=== PATIENT | female | born 1965 | race Caucasian/White ===

== ENCOUNTER → 2019-12-04 12:28 | Outpatient (BNVA) | payer BC, SELFPAY | PROVIDERS: Family Provider Internal Medicine; Visit Provider Family Medicine | DX: R68.89 Other general symptoms and signs (principal); E13.9 Other specified diabetes mellitus without complications; F41.9 Anxiety disorder, unspecified | CPT/HCPCS: 87635 ==

== ENCOUNTER → 2020-02-07 11:32 | Outpatient (BNVA) | payer BC, SELFPAY | PROVIDERS: Family Provider Internal Medicine; Visit Provider Family Medicine | DX: E11.9 Type 2 diabetes mellitus without complications (principal); J44.9 Chronic obstructive pulmonary disease, unspecified; R56.9 Unspecified convulsions; F41.9 Anxiety disorder, unspecified; G43.909 Migraine, unspecified, not intractable, without status migrainosus; E78.2 Mixed hyperlipidemia; G43.009 Migraine without aura, not intractable, without status migrainosus | CPT/HCPCS: 80053; 80061; 83036; 85025 ==

== ENCOUNTER → 2020-08-07 09:34 | Outpatient (BNVA) | payer BC, SELFPAY | PROVIDERS: Family Provider Internal Medicine; Visit Provider Family Medicine | DX: R39.9 Unspecified symptoms and signs involving the genitourinary system (principal); E13.9 Other specified diabetes mellitus without complications | CPT/HCPCS: 80048; 81000; 83036; 87086 ==

== ENCOUNTER → 2021-02-13 10:50 | Outpatient (BNVA) | payer BC, SELFPAY | PROVIDERS: Family Provider Internal Medicine; Visit Provider Family Medicine | DX: E78.2 Mixed hyperlipidemia (principal); E11.9 Type 2 diabetes mellitus without complications | CPT/HCPCS: 80053; 80061; 83036 ==

== ENCOUNTER → 2021-04-10 09:33 | Outpatient (BNVA) | payer BC, SELFPAY | PROVIDERS: Family Provider Internal Medicine; Referring Provider Family Medicine; Visit Provider Specialist | DX: G40.909 Epilepsy, unspecified, not intractable, without status epilepticus (principal); G44.309 Post-traumatic headache, unspecified, not intractable; F07.81 Postconcussional syndrome | CPT/HCPCS: 99215 ==

== ENCOUNTER 2021-05-22 08:50 | Outpatient (CLI) | payer BC, SELFPAY ==
--- NOTE | 2021-05-22 09:30 | MR_ITS ---
WS: [id number] MRI BRAIN WITHOUT CONTRAST HISTORY: G43.709 - Chronic migraine without aura, LEFT occipital headache. COMPARISON: 05/30/2018 TECHNIQUE: Diffusion imaging, multiplanar T1, T2 and FLAIR imaging obtained. No evidence for acute infarct or hemorrhage. [place]-white matter differentiation is normal. No change i n the focal gliosis centered in the LEFT occipital lobe. No new areas of abnormal signal. No remote or acute infarcts are volume loss. Ventricles and extra-axial spaces are normal. No inferior displacement of cerebellar tonsils. The sella turcica and pituitary gland are unremarkabl e. Dural venous sinuses and [place]agan [place] of [place] demonstrate no abnormality on this unenhanced studies. Paranasal sinuses: Clear. Mastoid air cells: Normal. Calvarium and scalp: Intact. MR/MR head wo con* [id number] IMPRESSION: 1. Unremarkable noncontrast MRI brain. 2. Stable MRI brain since 05/30/2018.
== END 2021-05-22 08:51 | disposition home or self-care (01) ==
LOC: RADSHAW 08:54
PROVIDERS: PCP Family Medicine; Visit Provider Specialist
DX: G43.709 Chronic migraine without aura, not intractable, without status migrainosus (principal)
CPT/HCPCS: 70551

== ENCOUNTER → 2021-09-29 13:57 | Outpatient (BNVA) | payer OTHER, SELFPAY | PROVIDERS: PCP Family Medicine; Visit Provider Family Medicine | DX: M54.2 Cervicalgia (principal); E11.9 Type 2 diabetes mellitus without complications; G40.109 Localization-related (focal) (partial) symptomatic epilepsy and epileptic syndromes with simple partial seizures, not intractable, without status epilepticus | CPT/HCPCS: 72040; 80053; 80061; 83036; 85025 ==

== ENCOUNTER 2021-10-23 06:00 | Outpatient (RCR) | payer OTHER, SELFPAY | END 2021-11-20 23:59 | disposition home or self-care (01) | LOC: MPT 06:00 | PROVIDERS: PCP Family Medicine; Referring Provider Family Medicine; Visit Provider Family Medicine | DX: M54.2 Cervicalgia (principal); G89.29 Other chronic pain | CPT/HCPCS: 97110; 97140; 97161; G0283 ==

== ENCOUNTER 2021-11-28 06:33 | Day surgery (SDC) | payer OTHER, SELFPAY ==
[2021-11-27 08:32] VITALS: BMI 19.3
--- NOTE | 2021-11-28 06:53 | ANES.PREANE2 ---
Pre-Anesthetic Assessment Height/Weight: Height 1.63 m Weight 51.256 kg Operation Date: 11/28/21 08:00 Proposed Procedures p Colonoscopy 26566/r19.5(Not Applicable) - Otf Boo MD Familial anesthetic complications: Fentanyl during colonoscopy caused apnea and code w/ chest compression and need for narcan - happened in [facility]. SHe also received versed at the time. Also had a reaction to demerol - breathing issues Was Beta Emily taken within 24 hours: N/A Was Clonidine taken within 24 hours: N/A Last intake: > 8 hrs Social No alcohol and No tobacco Exam alert, oriented x 3, clear to auscultation bilaterally and regular rate & rhythm Airway Mallampati: Class I Dentition: other (1 crown) Pulmonary None reported CV/HEM None reported None reported Hepatic None reported GI None reported Metabolic Diabetes Mellitus and Hyperlipidemia [facility] [place] Fibromyalgia Neuropsych Seizure (on zonegran) Anesthetic Plan ASA status: 3 Anesthesia: MAC Risk of > 500 ml blood loss (7ml/kg in children): No Medications/Allergies Home Medications Medication Instructions Recorded Confirmed Last Taken Type ibuprofen 200 mg tablet 200 mg PO Q6H PRN 12/04/19 11/27/21 Unknown History cyclobenzaprine 10 mg tablet 10 mg PO TID PRN #30 tab MDD 30 mg 09/29/21 11/27/21 Unknown Rx dapagliflozin 5 mg tablet (Farxiga) 5 mg PO DAILY 90 Days #90 tab 09/29/21 11/27/21 Unknown Rx rosuvastatin 40 mg tablet 40 mg PO DAILY 90 Days #90 tab 09/29/21 11/27/21 Unknown Rx sumatriptan succinate 100 mg tablet 100 mg PO Q2H PRN #9 tab 09/29/21 11/27/21 Unknown Rx escitalopram oxalate 20 mg tablet 20 mg PO DAILY 11/27/21 11/27/21 Unknown History (Lexapro) metformin 500 mg tablet,extended 500 mg PO BID 11/27/21 11/27/21 Unknown History release 24 hr zonisamide 100 mg capsule 300 mg PO DAILY 11/27/21 11/27/21 Unknown History (Zonegran) Allergies Allergy/AdvReac Type Severity Reaction Status Date / Time fentanyl Allergy almost Verified 11/27/21 08:29 meperidine [From Demerol] Allergy anxiety Verified 11/27/21 08:29 [facility] Anesthesia Medical History Anxiety Diabetes 1.5, managed as type 2 Fibromyalgia Hyperlipidemia Migraines Seizure Surgical History H/O: hysterectomy Social History Smoking and tobacco status: never smoked Alcohol intake: current Alcohol intake frequency: holidays/special occasions only Alcohol type: wine History of recent travel: No Current gender identity: Female Special edmundo needs: No Female Reproductive History Spontaneous abortions: No Data Anesthesia Cardiac Studies: No Data to Display
[2021-11-28 07:21] VITALS: BP 135/80; PULSE 71; RESP 18; TEMP 36.3; O2SAT 98
[2021-11-28] MEDS: sodium chloride 0.9% 1,000 ML 30 ML IV (07:21)
[2021-11-28 08:54] VITALS: BP 102/65; PULSE 62; RESP 18; TEMP 36.5; O2SAT 97
[2021-11-28 09:04] VITALS: BP 109/75; PULSE 67; RESP 18; TEMP 36.6; O2SAT 95
--- NOTE | 2021-11-28 11:53 | W.PM.OPSUD ---
Surgery/Procedure H&P Update DATE OF PROCEDURE: November 28, 2021 DATE H&P PERFORMED: 11/26/21 H&P UPDATE INFORMATION: I have reviewed H&P completed within last 30 days, I have examined patient prior to procedure and No changes to prior documentation CHANGES TO PREVIOUS DOCUMENTATION: none PREOP DIAGNOSIS: Change in bowel habits PRIMARY INDICATION FOR PROCEDURE: The same PLANNED PROCEDURE: Operation Date: 11/28/21 08:00 Proposed Procedures p Colonoscopy 31150/r19.5(Not Applicable) - Otf Boo MD
== END 2021-11-28 09:22 | disposition home or self-care (01) ==
PROVIDERS: PCP Family Medicine; Visit Provider Surgery
PROC: 0DJD8ZZ Inspection of Lower Intestinal Tract, Via Natural or Artificial Opening Endoscopic (ICD-10-PCS; CPT 45378; principal; 2021-11-28 08:00)
DX: R19.5 Other fecal abnormalities (principal); D12.2 Benign neoplasm of ascending colon; E11.9 Type 2 diabetes mellitus without complications; E78.5 Hyperlipidemia, unspecified; M79.7 Fibromyalgia
CPT/HCPCS: 45380; 82274; 83630; 87493; 87506; 88305; J2704; J7030

== ENCOUNTER 2022-02-16 15:56 | Outpatient (CLI) | payer OTHER, SELFPAY ==
--- NOTE | 2022-02-16 16:00 | MR_ITS ---
WS: [id number] MRI CERVICAL SPINE NONCONTRAST TECHNIQUE: Sagittal T1, T2 and STIR imaging. Axial T2, gradient, and fiesta imaging. CLINICAL INFORMATION: R29.898 - Other symptoms and signs involving the musculos... COMPARISON: MRI 2017 FINDINGS: Straightening of the normal cervical lordosis. Cord signal is normal. No high-grade central canal [place] nosis. C2-C3: No significant disc bulging. Mild facet arthropathy. Foramen are patent. C3-C4: Mild/moderate facet arthropathy worse in the LEFT. Spinal canal and foramen are patent. C4-C5: No significant disc bulging. Moderate LEFT facet arthropathy. Mild LEFT and no significant RIG HT foraminal narrowing. Spinal canal is patent. Diffuse edema about the LEFT C4-C5 articulating facet . C5-C6: Moderate RIGHT facet arthropathy. Tiny LEFT pericentral protrusion. No significant central can al stenosis. Spinal canal and foramen are patent. C6-C7: Tiny shallow central protrusion. Mild LEFT and no significant RIGHT foraminal narrowing. Spina l canal is patent. C7-T1: Normal Slightly heterogeneous thyroid with improved nodularity compared to previous. Visualized brain stem structures: Normal. Prevertebral soft tissues: Normal. MR/MR cervical spin wo con* [id number] IMPRESSION: 1. Straightening of the normal cervical lordosis. Cord signal is normal. 2. Shallow central protrusion C6-C7 with a tiny annular fissure. Spinal canal is patent. No significant central canal stenosis. 3. Mild bony foraminal narrowing more prominent at LEFT C4-C5, and LEFT C6-C7. 4. Moderate facet arthropathy LEFT C3-C4, LEFT C4-C5, and RIGHT C5-C6. 5. Edema about the LEFT C4-C5 articulating facets consistent with synovitis. R ecommend correlation with LEFT neck pain. This is likely inflammatory or degene rative and is new from previous.
== END 2022-02-16 15:57 | disposition home or self-care (01) ==
PROVIDERS: PCP Family Medicine; Visit Provider Specialist
DX: R29.898 Other symptoms and signs involving the musculoskeletal system (principal); M50.223 Other cervical disc displacement at C6-C7 level
CPT/HCPCS: 72141

== ENCOUNTER → 2022-04-21 09:46 | Outpatient (BNVA) | payer OTHER, SELFPAY | PROVIDERS: PCP Family Medicine; Visit Provider Family Medicine | DX: M62.838 Other muscle spasm (principal); E13.9 Other specified diabetes mellitus without complications; F41.9 Anxiety disorder, unspecified; G43.909 Migraine, unspecified, not intractable, without status migrainosus; E11.9 Type 2 diabetes mellitus without complications; G43.009 Migraine without aura, not intractable, without status migrainosus; R19.4 Change in bowel habit; M54.2 Cervicalgia | CPT/HCPCS: 80053; 83036 ==

== ENCOUNTER 2022-04-23 06:06 | Outpatient (CLI) | payer OTHER, SELFPAY ==
--- NOTE | 2022-04-23 06:15 | US_ITS ---
WS: [id number] RIGHT UPPER QUADRANT ULTRASOUND HISTORY: Abd pain COMPARISON: None available. Liver: 12.7 cm in length. Normal size liver. No bile duct dilatation or mass. Portal Vein: Normal hepatopetal flow with monophasic waveform. Gallbladder: Normally distended gallbladder with no stones or wall thickening. CBD: 0.4 cm Pancreas: Normal size and echogenicity. Right kidney: 10.2 cm in length. Normal size and echogenicity. No hydronephrosis or mass. Aorta and IVC: Unremarkable abdominal aorta and IVC. No ascites. Ultrasound directed to the area of pain in the LEFT upper outer quadrant with no abnormality identifi ed by ultrasound. US/US gall bladder [id number] IMPRESSION: Normal RIGHT upper quadrant ultrasound.
== END 2022-04-23 06:07 | disposition home or self-care (01) ==
LOC: RAD 06:06
PROVIDERS: PCP Family Medicine; Visit Provider Surgery
DX: R10.9 Unspecified abdominal pain (principal); R19.4 Change in bowel habit
CPT/HCPCS: 76705

== ENCOUNTER 2022-05-07 10:02 | Outpatient (CLI) | payer OTHER, SELFPAY ==
--- NOTE | 2022-05-07 10:11 | MM_ITS ---
WS: [id number] Bilateral screening 3D tomosynthesis digital mammogram, 05/07/2022 Clinical Data: Z12.39 - Encounter for other screening for malignant neop... Comparison: 07/12/2019, 07/02/2018, 04/05/2017, 03/11/2017, 04/07/2016, 03/09/2016. Findings: The breast parenchymal pattern shows heterogeneous density No spiculated masses or clustered calcific ations are seen. There are no secondary signs of carcinoma. There are mole markers on both breasts. T here is a biopsy clip in the 7:00 position in the left breast. MM/[place] [id number] Impression: 1. Negative bilateral mammogram unchanged. 2. Recommend annual screening mammograms. BIRADS: 1-Negative FOLLOW UP: 1 Year Follow-up The [employer] store clerk checker was used.
== END 2022-05-07 10:03 | disposition home or self-care (01) ==
LOC: RAD 10:03
PROVIDERS: PCP Family Medicine; Visit Provider Surgery
DX: Z12.31 Encounter for screening mammogram for malignant neoplasm of breast (principal)
CPT/HCPCS: 77063; 77067

== ENCOUNTER 2022-06-02 07:31 | Outpatient (CLI) | payer OTHER, SELFPAY ==
--- NOTE | 2022-06-02 08:00 | NM_ITS ---
WS: [id number] NUCLEAR MEDICINE HIDA SCAN WITH GALLBLADDER EJECTION FRACTION HISTORY: R14.0 - Abdominal distension (gaseous) COMPARISON: Gallbladder ultrasound 04/23/2022 TECHNIQUE: The patient was intravenously injected with 8.3 mCi of TC99m Mebrofenin. Immediate imaging over the right upper quadrant was followed by 5 minute image and additional images for a total of 60 minutes. Normal uptake of radiotracer throughout the liver. Activity identified in the gallbladder at 10 minutes and well distended by 60 minutes. Activity in the proximal small bowel was seen by 30 minutes. Good washout of the radiotracer from the liver by 60 minutes. The patient then drank 8 ounces of Ensure Plus. Ejection fraction at 60 minutes was 91%. Normal GB ej ection fraction is 35-75%. Post fatty meal symptoms: None. NM/NM hepatobiliary w phar* [id number] IMPRESSION: 1. Normal HIDA scan. 2. Normal gallbladder ejection fraction.
== END 2022-06-02 07:32 | disposition home or self-care (01) ==
PROVIDERS: PCP Family Medicine; Visit Provider Surgery
DX: R14.0 Abdominal distension (gaseous) (principal)
CPT/HCPCS: 78227; A9537

== ENCOUNTER 2022-09-04 08:56 | Outpatient (CLI) | payer OTHER, SELFPAY ==
--- NOTE | 2022-09-04 09:04 | FL_ITS ---
WS: [id number] UPPER GI, SMALL BOWEL FOLLOW THROUGH 09/04/2022. HISTORY: Abdominal pain TECHNIQUE: Oral barium administered with the patient in the the upright and prone AMARAL positions. The upper GI tr act was studied from the cervical esophagus through the duodenal sweep. Cervical esophagus was normal. In the thoracic esophagus there were intermittent low level tertiary contractions with retention of c ontrast which cleared with additional swallowing. Small hiatal hernia without stricture or reflux. The stomach, pylorus, duodenal bulb, and duodenal sweep were unremarkable. Additional oral barium was administered and the small bowel evaluated with multiple overhead radiogra phs and spot films. The small bowel demonstrated a normal caliber throughout. Mucosal pattern of the jejunum and ileum were normal. The terminal ileum was well demonstrated with no abnormality identified. FL/FL upper GI smallbowel series IMPRESSION: Normal upper GI series and small bowel follow-through.
== END 2022-09-04 08:57 | disposition home or self-care (01) ==
LOC: RAD 08:58
PROVIDERS: PCP Family Medicine; Visit Provider Surgery
DX: R14.0 Abdominal distension (gaseous) (principal); R19.4 Change in bowel habit; R10.9 Unspecified abdominal pain
CPT/HCPCS: 74240; 74248

== ENCOUNTER → 2022-10-20 10:35 | Outpatient (BNVA) | payer OTHER, SELFPAY | PROVIDERS: PCP Family Medicine; Visit Provider Family Medicine | DX: E13.9 Other specified diabetes mellitus without complications (principal); F41.9 Anxiety disorder, unspecified; G62.9 Polyneuropathy, unspecified; M62.838 Other muscle spasm; G43.909 Migraine, unspecified, not intractable, without status migrainosus; E11.9 Type 2 diabetes mellitus without complications; H65.192 Other acute nonsuppurative otitis media, left ear; E78.2 Mixed hyperlipidemia; G43.009 Migraine without aura, not intractable, without status migrainosus | CPT/HCPCS: 80053; 80061; 83036 ==

== ENCOUNTER → 2023-01-12 10:39 | Outpatient (BNVA) | payer OTHER, SELFPAY | PROVIDERS: PCP Family Medicine; Visit Provider Family Medicine | DX: R39.9 Unspecified symptoms and signs involving the genitourinary system (principal); Z12.4 Encounter for screening for malignant neoplasm of cervix | CPT/HCPCS: 81000; 87086 ==

== ENCOUNTER → 2023-04-13 11:36 | Outpatient (BNVA) | payer OTHER, SELFPAY | PROVIDERS: PCP Family Medicine; Visit Provider Family Medicine | DX: M62.838 Other muscle spasm (principal); E13.9 Other specified diabetes mellitus without complications; F41.9 Anxiety disorder, unspecified; G62.9 Polyneuropathy, unspecified; G43.909 Migraine, unspecified, not intractable, without status migrainosus; E11.9 Type 2 diabetes mellitus without complications; F32.A Depression, unspecified; F32.1 Major depressive disorder, single episode, moderate; Z63.6 Dependent relative needing care at home; G62.89 Other specified polyneuropathies; G43.009 Migraine without aura, not intractable, without status migrainosus | CPT/HCPCS: 80053; 83036 ==

== ENCOUNTER → 2024-04-17 10:50 | Outpatient (BNVA) | payer OTHER, SELFPAY | PROVIDERS: PCP Family Medicine; Visit Provider Family Medicine | DX: E11.9 Type 2 diabetes mellitus without complications (principal); E78.2 Mixed hyperlipidemia | CPT/HCPCS: 80048; 80061; 83036 ==

== ENCOUNTER → 2024-10-18 11:05 | Outpatient (BNVA) | payer OTHER, SELFPAY | PROVIDERS: PCP Family Medicine; Visit Provider Family Medicine | DX: M19.012 Primary osteoarthritis, left shoulder (principal); M77.8 Other enthesopathies, not elsewhere classified; E78.2 Mixed hyperlipidemia; E11.9 Type 2 diabetes mellitus without complications | CPT/HCPCS: 73030; 80053; 80061; 83036 ==

== ENCOUNTER → 2024-10-25 13:25 | Outpatient (BNVA) | payer OTHER, SELFPAY | PROVIDERS: PCP Family Medicine; Visit Provider Nurse Practitioner | DX: M75.22 Bicipital tendinitis, left shoulder (principal); M19.012 Primary osteoarthritis, left shoulder | CPT/HCPCS: 73030 ==

== ENCOUNTER → 2025-03-27 08:32 | Outpatient (BNVA) | payer OTHER, SELFPAY | PROVIDERS: PCP Family Medicine; Referring Provider Family Medicine; Visit Provider Family Medicine | DX: E11.9 Type 2 diabetes mellitus without complications (principal) | CPT/HCPCS: 83036 ==

== ENCOUNTER → 2025-07-12 10:09 | Outpatient (BNVA) | payer OTHER, SELFPAY | PROVIDERS: PCP Family Medicine; Visit Provider Family Medicine | DX: E78.2 Mixed hyperlipidemia (principal); E13.9 Other specified diabetes mellitus without complications | CPT/HCPCS: 80048; 80061; 83036 ==